=== PATIENT | female | born 1980 | race Caucasian/White ===

== ENCOUNTER 2019-07-16 21:27 | Emergency (ER) | payer BC, OTHER, SELFPAY ==
--- NOTE | ~2019-07-16 | XR_ITS ---
EXAMINATION: XR ankle RT min 3V INDICATION: Right heel pain TECHNIQUE: Four views of the right ankle are obtained. COMPARISON: 01/23/2016 FINDINGS: No fracture is identified. There is a plantar calcaneal enthesophyte. Bone alignment is nor mal. The soft tissues are unremarkable. IMPRESSION: 1. No acute osseous abnormality identified. If there is high clinical suspicion for fracture, conside r CT. Reviewed, dictated and finalized at location A. IMPRESSION: 1. No acute osseous abnormality identified. If there is high clinical suspicion for fracture, consider CT.
[2019-07-16 21:28] VITALS: BP 142/96; PULSE 95; RESP 16; TEMP 36.5; O2SAT 98
--- NOTE | 2019-07-16 21:33 | ED.EXTPRO ---
HPI - Extremity Problem General Chief complaint: Extremity Problem,Nontraumatic Stated complaint: heel pain Time Seen by Provider: 07/16/19 21:31 Source: patient Mode of arrival: ambulatory Limitations: no limitations History of Present Illness HPI Narrative: A 39 y/o female presents to the ED with c/o right heel pain. Pt states that the right heel pain started yesterday when she woke up and has been constant since. She notes that she works for [employer] and is constantly walking for her job. Pt denies any trauma or injury that could cause the pain. She denies numbness and tingling. Pt has no other complaints at this time. MD Complaint: extremity pain (Right heel) Onset (ago): day(s) (1) Pain Consistency: constant Location: right and other (Heel) Associated symptoms: denies other symptoms Related Data Allergies Allergy/AdvReac Type Severity Reaction Status Date / Time Penicillins AdvReac Unknown Verified 07/16/19 21:36 Review of Systems Review of Systems: All systems reviewed & are unremarkable except as noted in HPI and below Musculoskeletal: Musculoskeletal: Reports arthralgias (Right heel) Neurologic: Denies numbness and Denies tingling PMFSH Past Medical History Medical History Asthma Bronchitis Hx of rotator cuff tear rt Surgical History Surgical History History of classical section x3 Hx of rotator cuff surgery rt Social History Social History Smoking status: Never smoker Gender identity (if verbalized by the patient): Female Exam Narrative: Exam Narrative: GENERAL: Well-appearing, well-nourished, and in no acute distress. HEAD: Normocephalic, atraumatic. EYES: PERRLA and EOMI. ENT: . Mucous membranes moist. NECK: Supple. CHEST: Clear to auscultation. No respiratory distress. HEART: Regular rate and rhythm. No murmur heard. Normal peripheral pulses.. EXTREMITIES: Normal range of motion. No edema. Right ankle no soft tissue swelling, normal range of motion however tenderness on the right Achilles tendon. SKIN: Warm, dry, no rash. NEURO: No focal deficits. Alert and oriented x3. PSYCH: Normal mood and affect. Course Course Emergency Course: Inform patient about her x-ray findings. At this time it appears to be more tendinitis. Advised her to use Ross wrap and take pain medication as prescribed. Vital Signs Vital signs: Vital Signs Temperature 36.5 C 07/16/19 21:28 Pulse Rate 95 07/16/19 21:28 Respiratory Rate 16 07/16/19 21:28 Blood Pressure 142/96 H 07/16/19 21:28 Pulse Oximetry 98 07/16/19 21:28 Temperature 36.5 C 07/16/19 21:28 Pulse Rate 95 07/16/19 21:28 Respiratory Rate 16 07/16/19 21:28 Blood Pressure 142/96 H 07/16/19 21:28 Pulse Oximetry 98 07/16/19 21:28 Discharge Plan Discharge Clinical Impression: Achilles tendinitis Qualifiers: Laterality: right Qualified Code(s): M76.61 - Achilles tendinitis, right leg Patient Disposition: Home, Self-Care Condition: Stable Instructions: Achilles Tendinitis (ED) Additional Instructions: Use Ross wrap, follow-up with your primary doctor or orthopedic doctor if symptoms do not improve in a week time. Prescriptions: New naproxen 500 mg tablet 500 mg PO BID PRN (Reason: pain) Qty: 20 RF: 0 No Action azithromycin 500 mg tablet See Rx Instructions .ROUTE .COMPLEX Qty: 6 RF: 0 albuterol sulfate 90 mcg/actuation aero powdr breath act w/sensor 1 inhalation INHALATION Q4-6H PRN (Reason: shortness of breath or wheezing) 10 Days Qty: 1 RF: 0 azithromycin 500 mg tablet See Rx Instructions .ROUTE .COMPLEX Qty: 6 RF: 0 acetaminophen [Tylenol] 325 mg tablet 325 mg PO Q6H PRN (Reason: pain) Qty: 20 RF: 0 ibuprofen 400 mg tablet 400 mg PO TID PRN (Reason: fever or pain) 10 Days Qty: 30 RF: 0 fluticasone propiona
== END 2019-07-16 22:22 | disposition home or self-care (01) ==
PROVIDERS: Emergency Provider Family Medicine
DX: M76.61 Achilles tendinitis, right leg (principal); J45.909 Unspecified asthma, uncomplicated
CPT/HCPCS: 73610; 99283

== ENCOUNTER 2019-07-24 00:13 | Emergency (ER) | payer OTHER, SELFPAY ==
--- NOTE | ~2019-07-24 | XR_ITS ---
EXAMINATION: XR chest 2V DATE: 07/24/2019 01:06 INDICATION: Chest pain. Hypertension. TECHNIQUE: PA and lateral views of the chest were obtained. COMPARISON: Chest radiograph dated 05/06/2019 FINDINGS: The lungs remain clear with no focal airspace opacities, pulmonary edema, pleural effusion or pneumot horax. The cardiomediastinal silhouette is normal. Mild thoracic spondylosis. IMPRESSION: 1. No acute cardiopulmonary disease. Reviewed, dictated and finalized at location A.
[2019-07-24 00:16] VITALS: BP 153/99; PULSE 95; RESP 18; TEMP 36.2; O2SAT 98
--- NOTE | 2019-07-24 00:40 | ECG_ITS ---
Measurements Intervals [place] Rate: 76 P: 16 OR: 169 QRS: -22 QRSD: 88 T: -3 QT: 355 QTc: 400 Interpretive Statements SINUS RHYTHM VOLTAGE CRITERIA FOR LVH BORDERLINE R WAVE PROGRESSION, ANTERIOR LEADS BORDERLINE T WAVE ABNORMALITY- INFERIOR LEADS BASELINE ARTIFACT- I, III, AVR, AVL, AVF BORDERLINE ECG Electronically Signed On 07-24-2019 7:12:49 CDT by Polo Buitrago D.O.
--- NOTE | 2019-07-24 00:43 | ED.GENADULT ---
HPI - General Adult General Chief complaint: Recheck/Abnormal Lab/Rx Stated complaint: high bp Time Seen by Provider: 07/24/19 00:19 History of Present Illness HPI narrative: 39-year-old female presents emergency department with complaint of shortness of breath, lightheadedness and elevated blood pressure. Patient states she was at work and started to feel short of breath and lightheaded and went to the office to have someone take her blood pressure which was 166/112. She states she was having some of the symptoms yesterday but they seem to improve. She reports chest pain that has been intermittent and faint . She denies cough, fever, chills, nausea or vomiting. She denies any pain in the calf area, headache, changes in vision. Related Data Allergies Allergy/AdvReac Type Severity Reaction Status Date / Time Penicillins AdvReac Unknown Verified 07/24/19 00:37 Review of Systems Review of Systems: Narrative: CONSTITUTIONAL: Denies fever, chills, or sweats. EYES: Denies visual changes, redness, or discharge. ENT: Denies rhinorrhea, congestion, sore throat, or otalgia. CARDIOVASCULAR: Reports darell chest pain that is intermittent. Denies palpitations, or edema. RESPIRATORY: Denies cough. Reports feeling short of breath today. GASTROINTESTINAL: Denies abdominal pain, nausea, vomiting, or diarrhea. GENITOURINARY: Denies dysuria or hematuria. SKIN: Denies rash or itching. MUSCULOSKELETAL: Denies back pain, joint pain, or myalgia. NEUROLOGIC: Denies headache, numbness, or weakness. Reports lightheadedness. PSYCHIATRIC: Denies anxiety or depression. [facility] Past Medical History Medical History Asthma Bronchitis Hx of rotator cuff tear rt Surgical History Surgical History History of classical section x3 Hx of rotator cuff surgery rt Family History Family History (Updated 07/24/19 @ 00:50 by MANGO Lazar) Grandparent FH: lung cancer Mother Thyroid condition Social History Social History (Updated 07/24/19 @ 00:50 by MANGO Lazar) Smoking status: Former smoker Tobacco type: cigarettes Alcohol intake: current Alcohol use details: Occasional Gender identity (if verbalized by the patient): Female Exam Narrative: Exam Narrative: GENERAL: Well-appearing, well-nourished, and in no acute distress. HEAD: Normocephalic, atraumatic. EYES: Sclera anicteric.PERRL ENT: Nares clear, no rhinorrhea or epistaxis. Mucous membranes moist. NECK: Supple. No thyromegaly. CHEST: Clear to auscultation. No respiratory distress. Pain is not reproducible. HEART: Regular rate and rhythm. No murmur heard. Normal peripheral pulses. ABDOMEN: Soft, nontender, nondistended, normal active bowel sounds. EXTREMITIES: Normal range of motion. No edema. SKIN: Warm, dry, no rash. NEURO: No focal deficits. Alert and oriented x3. PSYCH: Normal mood and affect. Course Course Emergency Course: 39 y/o female with a hx of bronchitis presented after she was not feeling well at work and had a blood pressure reading of 166/112. She states she felt lightheaded and SOB with a discomfort across her chest when she took a breath. Pain is not reproducible and symptoms were resolved on initial exam. She states she had similar symptoms yesterday, but did not check her blood pressure. Reading was obtained at her place of employment by non-medical personnel. B/p has been elevated in the ED at 153/99. She is not tachycardic and EKG is without change compared to prior in May 2019. Cardiac workup and CXR is negative. She does not have a PCP at this time and have referred to provider relations advocate PCP. Heart risk score is 1 and PERC is 0. Will D/C home to follow up with PCP. Vital Signs Vital signs: Vital Signs Temperature 36.2 C L 07/24/19 00:16 Pulse Rate 95 07/24/19 00:16 Respiratory Rate 18 07/24/19 00:16 Blood P
[2019-07-24 01:02] LABS: Basophils Percent Auto 0.5 % (0.2-1.2); Eosinophils Absolute Auto 0.5 K/mm3 (0-0.3); Eosinophils Percent Auto 5.2 % (0-4.4); Hematocrit 37.6 % (37.0-47.0); Hemoglobin 12.3 g/dL (12.0-15.0); Immature Granulocyte Absolute 0.01 K/mm3 (0.00-0.031); Immature Granulocyte Percent A 0.1 % (0-0.5); Lymphocytes Absolute Auto 3.16 K/mm3 (0.9-3.2); Lymphocytes Percent Auto 36.8 % (18.3-44.2); Mean Corpuscular HGB Conc 32.7 g/dl (32-36); Mean Corpuscular Hemoglobin 29.4 pg (26-34); Mean Corpuscular Volume 89.7 fl (80-100); Mean Platelet Volume 9.5 fl (7.4-10.4); Monocytes Absolute Auto 0.5 K/mm3 (0.1-0.6); Monocytes Percent Auto 5.8 % (2.6-8.5); Neutrophils Absolute Auto 4.4 K/mm3 (1.3-6.7); Neutrophils Percent Auto 51.6 % (45.5-73.1); Platelet Count Result 286 k/mm3 (150-375); Red Blood Count 4.19 M/mm3 (4.2-5.4); Red Cell Distribution Width 14.1 % (11.5-14.5); White Blood Count 8.6 K/mm3 (4.5-10.0)
[2019-07-24 01:05] VITALS: RESP 19
[2019-07-24 01:08] VITALS: BP 139/88; PULSE 78; RESP 19
[2019-07-24 01:11] LABS: INR 0.9; Prothrombin Time 12.1 Seconds (11.1-14.7)
[2019-07-24 01:12] LABS: Alanine Aminotransferase 24 U/L (4-35); Albumin Level 3.8 g/dL (3.5-5.1); Alkaline Phosphatase 131 U/L (38-126); Aspartate Amino Transferase 33 U/L (14-36); Bilirubin,Total 0.4 mg/dL (0.2-1.3); Blood Urea Nitrogen 17 mg/dL (7-17); Calcium 8.6 mg/dL (8.4-10.2); Carbon Dioxide 26 mmol/L (22-30); Chloride 103 mmol/L (98-107); Estimated CRCL calculation 78 ml/min; Estimated Glomerular Filt Rate > 60; Glucose 83 mg/dL (65-105); Partial Thromboplastin Time 26.4 SECONDS (22.3-36.8); Potassium 3.6 mmol/L (3.4-5.0); Sodium 136 mmol/L (137-145)
[2019-07-24] MEDS: ASPIRIN 81 MG CHEWABLE TABLET 324 MG PO (01:12)
[2019-07-24 01:16] VITALS: BP 156/99; PULSE 76; RESP 14
[2019-07-24 01:24] LABS: Troponin I < 0.012 ng/mL (0.000-0.034)
[2019-07-24 01:32] VITALS: BP 152/96; PULSE 82; RESP 17
[2019-07-24 01:46] VITALS: BP 141/94; PULSE 73; RESP 22
== END 2019-07-24 02:03 | disposition home or self-care (01) ==
PROVIDERS: Emergency Provider Nurse Practitioner
DX: R03.0 Elevated blood-pressure reading, without diagnosis of hypertension (principal); Z87.440 Personal history of urinary (tract) infections
CPT/HCPCS: 36415; 71046; 80053; 81025; 84484; 85025; 85610; 85730; 93005; 99284; A9270

== ENCOUNTER 2019-11-19 18:42 | Emergency (ER) | payer OTHER, SELFPAY ==
[2019-11-19 19:16] VITALS: BP 162/106; PULSE 90; RESP 19; TEMP 36.7; O2SAT 100
[2019-11-19 21:16] VITALS: TEMP 36.8
--- NOTE | 2019-11-19 21:17 | ED.URI ---
HPI - URI/Sore Throat General Chief Complaint: Upper Respiratory Infection Stated Complaint: FEVER, CHILLS Time Seen by Provider: 11/19/19 21:15 History of Present Illness HPI Narrative: She reports a headache and sinus pressure for the past few days. Associated with body ahces, nasal drainage and cough. She tried ibuprofen with significant relief. She works at [employer] and said they have had COVID-19 cases there. No fever, wheezing, SOB. Related Data Allergies Allergy/AdvReac Type Severity Reaction Status Date / Time Penicillins AdvReac Unknown Verified 11/19/19 21:20 Review of Systems Review of Systems: All systems reviewed & are unremarkable except as noted in HPI and below Constitutional: Constitutional: Denies fever(s) ENT: Reports nasal congestion and Denies sore throat Cardiovascular: Cardiovascular: Denies chest pain Respiratory: Respiratory: Reports cough and Denies dyspnea Gastrointestinal: Gastrointestinal: Denies nausea and Denies vomiting Genitourinary: Genitourinary: Denies dysuria Musculoskeletal: Musculoskeletal: Reports myalgias Neurologic: Reports headache(s) [facility] Past Medical History Medical History Asthma Bronchitis Hx of rotator cuff tear rt Surgical History Surgical History History of classical section x3 Hx of rotator cuff surgery rt Family History Family History Grandparent FH: lung cancer Mother Thyroid condition Social History Social History Smoking status: Former smoker Tobacco type: cigarettes Alcohol intake: current Gender identity (if verbalized by the patient): Female Exam HENMT: Ears: TM's normal bilaterally Face and sinus: sinus tenderness maxillary Eyes: Conjunctivae: conjunctivae normal Pupils: Equal, round and reactive pupils present EOM: EOMs intact bilaterally Neck: Neck: normal visual inspection and no lymphadenopathy Resp: Effort & Inspection: normal respiratory effort Auscultation: clear to auscultation bilaterally Cardio: Rate: regular rate Rhythm: regular rhythm GI: GI Palp: Yes Soft to palpation and No Tenderness to palpation present (GI) Skin: General skin exam: normal color Neuro: General: patient oriented x3, moves all extremities and CN's II-XI intact bilaterally Speech: normal speech Course Vital Signs Vital signs: Vital Signs Temperature 36.7 C 11/19/19 19:16 Pulse Rate 90 11/19/19 19:16 Respiratory Rate 19 11/19/19 19:16 Blood Pressure 162/106 H 11/19/19 19:16 Pulse Oximetry 100 11/19/19 19:16 Temperature 36.8 C 11/19/19 21:16 Pulse Rate 90 11/19/19 21:19 Respiratory Rate 18 11/19/19 22:40 Blood Pressure 150/104 H 11/19/19 21:19 Pulse Oximetry 98 11/19/19 21:19 MDM - URI/Sore Throat MDM Narrative Medical decision making narrative: Exam consistent with sinusitis. No indication for antibiotics at this time. Will test for COVID due to possible exposure. Medical Records Attestation: I reviewed the patient's medical records. Discharge Plan Discharge Clinical Impression: Sinusitis Qualifiers: Sinusitis location: unspecified location Chronicity: acute Recurrence: not specified as recurrent Qualified Code(s): J01.90 - Acute sinusitis, unspecified Patient Disposition: Home, Self-Care Condition: Stable Instructions: Sinusitis (ED) Prescriptions: New naproxen 500 mg tablet 500 mg PO BID Qty: 30 RF: 0 loratadine-pseudoephedrine [Claritin-D 24 Hour] 10-240 mg tablet extended release 24 hr 1 tablet PO DAILY Qty: 20 RF: 0 No Action albuterol sulfate 90 mcg/actuation aero powdr breath act w/sensor 1 inh INHALATION Q4-6H PRN (Reason: shortness of breath or wheezing) Qty: 1 RF: 0 Follow-up/Referrals: PHYSICIAN,ON C
[2019-11-19 21:19] VITALS: BP 150/104; PULSE 90; RESP 18; O2SAT 98
[2019-11-19] MEDS: ACETAMINOPHEN 500 MG TABLET 1000 MG PO (22:00)
[2019-11-19] MEDS: diphenhydrAMINE HCl CAP 25 MG CAPSULE PO (22:00)
[2019-11-19] MEDS: KETOROLAC (*BKC) 60 MG/2 ML VIAL IM (22:02)
[2019-11-19 22:40] VITALS: RESP 18
== END 2019-11-19 22:40 | disposition home or self-care (01) ==
PROVIDERS: Emergency Provider Emergency Medicine
DX: J01.90 Acute sinusitis, unspecified (principal); J45.909 Unspecified asthma, uncomplicated; Z87.891 Personal history of nicotine dependence; Z20.828 Contact with and (suspected) exposure to other viral communicable diseases
CPT/HCPCS: 96372; 99283; A9270; J1885

== ENCOUNTER 2022-04-09 14:38 | Emergency (ER) | payer OTHER, SELFPAY ==
[2022-04-09] VITALS (13 sets, daily range): BP systolic 133–162; BP diastolic 75–98; PULSE 77–88; RESP 16–20; TEMP 36.7–36.8; O2SAT 98–100
--- NOTE | ~2022-04-09 | XR_ITS ---
EXAMINATION: XR chest 2V Exam Date/Time: 04/09/2022 16:25 RELOCATION COORDINATOR HISTORY: shortness of breath X 1 WK, HX ASTHMA, LT SIDED CHEST PAIN Comparison: 07/24/2019. RESULT: Lines, tubes, and devices: None. Lungs and pleura: Clear. Cardiomediastinal silhouette: Stable. Other: No acute osseous or upper abdominal finding. IMPRESSION: No acute cardiopulmonary process. Reviewed, dictated and finalized at location K. CATION COORDINATOR
--- NOTE | ~2022-04-09 | CT_ITS ---
EXAMINATION: CTA chest PE protocol DATE: 04/09/2022 18:41 INDICATION: shortness of breath, elevated d dimer TECHNIQUE: Computed tomography angiography (CTA) of the chest was performed with 200 mL Omnipaque-350 intravenous contrast timed to evaluate the pulmonary arteries. Coronal maximum intensity projection 3D-reconstructions were created by the technologist. The dose-length product (DLP) was 1003.46 mGy-cm . Automated exposure control and iterative reconstruction technique were employed. COMPARISON: None. FINDINGS: Lung parenchyma and airways: Clear. Intrapulmonary lymph node ini the peripheral right lower lobe, im age 61 series 4. Pleura: Unremarkable. Thoracic inlet, axillae and chest wall: Unremarkable. Thoracic aorta: Normal. Mediastinum: Normal. Heart and pericardium: Normal. Coronary artery calcifications: Absent. Upper abdomen: No significant finding. Bones: No acute osseous finding. Pulmonary arteries: Study quality: Non-diagnostic, due to inadequate overall contrast enhancement, la te phase, beam hardening, motion, and quantum mottle, even after a repeat injection attempt. No pulmo nary emboli detected. IMPRESSION: This examination is nondiagnostic with respect to the diagnosis of pulmonary embolus, even after a re peat imaging attempt. Borderline ascending thoracic aortic aneurysm measuring 4.8 cm, recommend follo w-up CT of the chest with contrast in one year. Reviewed, dictated and finalized at location K. NER TOUCH UP WORKER IMPRESSION: This examination is nondiagnostic with respect to the diagnosis of pulmonary em bolus, even after a repeat imaging attempt. Borderline ascending thoracic aorti c aneurysm measuring 4.8 cm, recommend follow-up CT of the chest with contrast in one year.
--- NOTE | 2022-04-09 15:31 | ECG_ITS ---
Measurements Intervals [place] Rate: 82 P: 35 LA: 179 QRS: -11 QRSD: 98 T: 12 QT: 341 QTc: 400 Interpretive Statements SINUS RHYTHM MODERATE VOLTAGE CRITERIA FOR LVH, CONSIDER NORMAL VARIANT [MEETS CRITERIA IN ONE OF: R(aVL), S(V1), R(V5), R(V5/V6)+S(V1)] POOR R-WAVE PROGRESSION COMPARED TO ECG 07/24/2019 00:43:06 NO SIGNIFICANT CHANGES Electronically Signed On 04-10-2022 8:29:46 MCAT TUTOR by Killian Bobo M.D.
[2022-04-09 16:25] LABS: Basophils Percent Auto 0.4 % (0.2-1.2); Eosinophils Absolute Auto 0.4 K/mm3 (0-0.3); Hematocrit 38.9 % (37.0-47.0); Hemoglobin 12.7 g/dL (12.0-15.0); Immature Granulocyte Absolute 0.02 K/mm3 (0.00-0.031); Immature Granulocyte Percent A 0.2 % (0-0.5); Lymphocytes Absolute Auto 2.37 K/mm3 (0.9-3.2); Lymphocytes Percent Auto 24.1 % (18.3-44.2); Mean Corpuscular HGB Conc 32.6 g/dl (32-36); Mean Corpuscular Hemoglobin 28.7 pg (26-34); Mean Corpuscular Volume 87.8 fl (80-100); Mean Platelet Volume 9.5 fl (7.4-10.4); Monocytes Absolute Auto 0.7 K/mm3 (0.1-0.6); Monocytes Percent Auto 7.1 % (2.6-8.5); Neutrophils Absolute Auto 6.3 K/mm3 (1.3-6.7); Neutrophils Percent Auto 64.2 % (45.5-73.1); Platelet Count Result 323 k/mm3 (150-375); Red Blood Count 4.43 M/mm3 (4.2-5.4); Red Cell Distribution Width 13.6 % (11.5-14.5); White Blood Count 9.8 K/mm3 (4.5-10.0)
[2022-04-09 16:43] LABS: Alanine Aminotransferase 22 U/L (6-35); Albumin Level 4.2 g/dL (3.5-5.1); Alkaline Phosphatase 106 U/L (38-126); Anion Gap 5 mmol/L (8-16); Aspartate Amino Transferase 29 U/L (14-36); Bilirubin,Total 0.5 mg/dL (0.2-1.3); Blood Urea Nitrogen 18 mg/dL (7-17); Calcium 8.7 mg/dL (8.4-10.2); Carbon Dioxide 29 mmol/L (22-30); Chloride 107 mmol/L (98-107); Estimated CRCL calculation 80 ml/min; Estimated Glomerular Filt Rate > 60; Glucose 90 mg/dL (65-110); Potassium 3.8 mmol/L (3.4-5.0); Sodium 141 mmol/L (137-145)
[2022-04-09 17:22] LABS: Troponin I < 0.012 ng/mL (0.000-0.034)
[2022-04-09 17:30] LABS: Influenza A QL RT-PCR Negative (Negative); Influenza B QL RT-PCR Negative (Negative); RSV RNA, RT-PCR Negative (Negative); SARS-CoV-2 RNA PCR Negative
--- NOTE | 2022-04-09 17:32 | ED.SOB ---
HPI - SOB/Dyspnea General Chief Complaint: Shortness of Breath/Dyspnea <Richard Marin APRN - Last Filed: 04/09/22 17:37> Stated Complaint: dizziness, headache <Richard Marin APRN - Last Filed: 04/09/22 17:37> Time Seen by Provider: 04/09/22 16:35 <Richard Marin CUSTOMS GUARD - Last Filed: 04/09/22 17:37> History of Present Illness HPI Narrative: 42-year-old female history of asthma presents to the emergency room for evaluation of shortness of breath that has been present for 1 week. States today while at work she began feeling lightheadedness and dizziness. Said that she reportedly checked her blood pressure and was found to be 138/100. Reportedly took her rescue inhaler once began experiencing short duration of palpitations. States has not taken her rescue inhaler in several months. Denies any chest pain or difficulty breathing. Denies difficulty taking a deep satisfying breath. No history of blood clots. No history of recent surgeries. Does remark that she had some mild sinus congestion and a mild cough couple weeks ago but that is since resolved. <Richard Marin APRN - Last Filed: 04/09/22 17:37> Related Data Allergies/Adverse Reactions: Allergies Allergy/AdvReac Type Severity Reaction Status Date / Time Penicillins AdvReac Unknown Verified 11/19/19 21:20 <Richard Marin APRN - Last Filed: 04/09/22 17:37> Review of Systems Review of Systems: CONSTITUTIONAL: Denies fever, chills, or sweats. EYES: Denies visual changes, redness, or discharge. ENT: Denies rhinorrhea, congestion, sore throat, or otalgia. CARDIOVASCULAR: Denies chest pain, palpitations, or edema. RESPIRATORY: Reports dyspnea GASTROINTESTINAL: Denies abdominal pain, nausea, vomiting, or diarrhea. GENITOURINARY: Denies dysuria or hematuria. SKIN: Denies rash or itching. MUSCULOSKELETAL: Denies back pain, joint pain, or myalgia. NEUROLOGIC: Denies headache, numbness, dizziness, or weakness. PSYCHIATRIC: Denies anxiety or depression. <Richard Marin APRN - Last Filed: 04/09/22 17:37> [facility] Past Medical History Medical History: Medical History (Updated 04/09/22 @ 19:06 by Jessie De La Cruz PA-C) Asthma Bronchitis Hx of rotator cuff tear rt <Richard Marin APRN - Last Filed: 04/09/22 17:37> Surgical History Surgical History: Surgical History History of classical section x3 Hx of rotator cuff surgery rt <Richard Marin APRN - Last Filed: 04/09/22 17:37> Family History Family History: Family History Grandparent FH: lung cancer Mother Thyroid condition <Richard Marin APRN - Last Filed: 04/09/22 17:37> Social History Social History: Social History Smoking status: Former smoker Tobacco type: cigarettes Alcohol intake: current Alcohol use details: Occasional Gender identity (if verbalized by the patient): Female <Richard Marin APRN - Last Filed: 04/09/22 17:37> Exam Narrative: GENERAL: Well-appearing, well-nourished, no physical limitations, and in no acute distress. HEAD: Normocephalic, atraumatic. EYES: Conjunctivae normal, PERRLA and EOMI. NECK: Supple. No adenopathy or masses. CHEST: Clear to auscultation. No respiratory distress. No wheezes rales or rhonchi. HEART: Regular rate and rhythm. No murmur heard. Normal peripheral pulses. EXTREMITIES: Normal range of motion. No edema. No clubbing or cyanosis SKIN: Warm, dry, no rash. No noted wounds NEURO: No focal deficits. Alert and oriented x3. MAEW. CN's II-XI intact bilaterally, normal gait PSYCH: Cooperative. Normal mood and affect. <Richard Marin APRN - Last Filed: 04/09/22 17:37> Course Course Emergency Course: Taken over at shift change pending CTA. Unfortunately CTA is nondiagnostic for PE. She is low ris
[2022-04-09 17:43] LABS: D Dimer 0.88 ug/mL (<0.48)
[2022-04-09] MEDS: SODIUM CHLORIDE 0.9% IV 1,000 ML 999 ML IV CONT (17:57)
== END 2022-04-09 19:46 | disposition home or self-care (01) ==
PROVIDERS: Emergency Medicine; Emergency Provider Nurse Practitioner Family
DX: R06.02 Shortness of breath (principal); Z87.891 Personal history of nicotine dependence; Z20.822 Contact with and (suspected) exposure to COVID-19
CPT/HCPCS: 36415; 71046; 71275; 80053; 81025; 84484; 85025; 85380; 87637; 93005; 96360; 99284; J7030; Q9967

== ENCOUNTER 2022-11-27 12:18 | Emergency (ER) | payer OTHER, SELFPAY ==
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
[2022-11-27 12:37] VITALS: BP 153/92; PULSE 73; RESP 16; TEMP 36.3; O2SAT 98
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
[2022-11-27] MEDS: CYCLOBENZAPRINE HCL 10 MG TABLET PO (15:38)
[2022-11-27] MEDS: IBUPROFEN 600 MG TABLET PO (15:38)
[2022-11-27 16:36] VITALS: PULSE 82; RESP 18
== END 2022-11-27 16:38 | disposition home or self-care (01) ==
PROVIDERS: Emergency Provider Physician Assistant
DX: S16.1XXA Strain of muscle, fascia and tendon at neck level, initial encounter (principal); S29.019A Strain of muscle and tendon of unspecified wall of thorax, initial encounter; S90.01XA Contusion of right ankle, initial encounter; V44.5XXA Car driver injured in collision with heavy transport vehicle or bus in traffic accident, initial encounter
CPT/HCPCS: 70450; 72125; 72128; 73610; 99284; A9270

== ENCOUNTER 2024-03-11 17:24 | Emergency (ER) | payer SELFPAY ==
--- NOTE | ~2024-03-11 | CT_ITS ---
CLINICAL INDICATION: Left-sided flank pain COMPARISON: None. TECHNIQUE: Multiple contiguous axial images of the abdomen and pelvis were performed without the admi nistration of intravenous contrast The dose-length product (DLP) was 974.26 mGy-cm. Automated exposure control and iterative reconstruction technique were employed. FINDINGS/OBSERVATIONS: Visualized lower thorax: The bilateral lung bases are clear. The heart is of normal size, without pericardial effusion. Small hiatal hernia is present. Liver: The liver demonstrates homogeneous attenuation and is not enlarged measuring 16 cm in longitudinal di mension. Gallbladder and biliary system: The gallbladder is only minimally distended, and otherwise unremarkable. Pancreas: Limited evaluation of the pancreas secondary to the lack of intravenous contrast. Spleen: The spleen demonstrates homogeneous attenuation and is not enlarged measuring 10 cm in longitudinal d imension. Kidneys: Mild left-sided hydronephrosis, without hydroureteronephrosis or obstructing stone visualized. The right nothing dictated kidney, collecting system, and ureter are unremarkable. Adrenal glands: Unremarkable. Gastrointestinal tract: Colonic diverticulosis without surrounding inflammatory change. Fecal stasis within the colon. Appendix: The air-filled appendix is of normal caliber (axial series, images 109-116) Vasculature: Unremarkable. Lymph nodes: No pathologically enlarged or morphologically suspicious lymph nodes within the retroperitoneum or at the root of the mesentery. Pelvic structures: The bladder is decompressed, and otherwise unremarkable. The uterus is anteverted and anteflexed, and otherwise unremarkable. Body wall and musculoskeletal: Small fat-containing umbilical hernia. No significant degenerative disease within the lower thoracic or lumbosacral spine. IMPRESSION: Mild left-sided hydronephrosis, possibly secondary to a recently passed calculus. No left-sided hydro ureter. No obstructing calculus within the left ureter. No calculus within the bladder. Examination is otherwise unremarkable, as detailed above Reviewed, dictated and finalized at location A. [facility] IMPRESSION: Mild left-sided hydronephrosis, possibly secondary to a recently passed calculu s. No left-sided hydroureter. No obstructing calculus within the left ureter. N o calculus within the bladder. Examination is otherwise unremarkable, as detailed above
[2024-03-11 17:29] VITALS: BP 154/99; PULSE 90; RESP 19; TEMP 36.8; O2SAT 100
--- NOTE | 2024-03-11 17:40 | ED.ABDPAIN ---
HPI - Abdominal Pain General Chief Complaint: Abdominal Pain <MARY Ivey Last Filed: 03/11/24 18:51> Stated Complaint: left flank pain <MARY Ivey Last Filed: 03/11/24 18:51> Time Seen by Provider: 03/11/24 17:32 <MARY Ivey Last Filed: 03/11/24 18:51> Source: patient <MARY Ivey Last Filed: 03/11/24 18:51> Mode of arrival: ambulatory <MARY Ivey Last Filed: 03/11/24 18:51> Limitations: no limitations <MARY Ivey Last Filed: 03/11/24 18:51> History of Present Illness HPI narrative: Patient is a 43 y/o female who presents to the ED with c/o L flank pain. Patient reports pain began yesterday but became worse today and has been radiating around to her L mid/upper abdomen. Denies hx of similar pain. Denies injury. Took ibuprofen earlier today w/o improvement. Denies N/V, dysuria, hematuria, fevers, hx of kidney stones. <MARY Ivey Last Filed: 03/11/24 18:51> Related Data Allergies/Adverse Reactions: Allergies Allergy/AdvReac Type Severity Reaction Status Date / Time Penicillins AdvReac Unknown Verified 03/11/24 17:52 <Amada Purcell PA-C - Last Filed: 03/11/24 18:51> Review of Systems Review of Systems: All systems reviewed & are unremarkable except as noted in HPI. <MARY Ivey Last Filed: 03/11/24 18:51> All systems reviewed & are unremarkable except as noted in HPI and below <MARY Ivey Last Filed: 03/11/24 18:51> FOR[facility]LY [facility] Past Medical History Medical History: Medical History (Updated 03/12/24 @ 00:00 by Mikhail Dachristopher) Asthma Bronchitis Hx of rotator cuff tear rt <Amada Purcell PA-C - Last Filed: 03/11/24 18:51> Surgical History Surgical History: Surgical History History of classical section x3 Hx of rotator cuff surgery rt <Amada Purcell PA-C - Last Filed: 03/11/24 18:51> Family History Family History: Family History Grandparent FH: lung cancer Mother Thyroid condition <Amada Purcell PA-C - Last Filed: 03/11/24 18:51> Social History Social History: Social History Smoking status: Former smoker Tobacco type: cigarettes Alcohol intake: current Alcohol use details: Occasional Gender identity (if verbalized by the patient): Female <Amada Purcell PA-C - Last Filed: 03/11/24 18:51> Exam Narrative: GENERAL: Well appearing, obese with BMI of 36.7, non-toxic, in no acute distress. HEAD: Normocephalic, atraumatic. RESPIRATORY: Airway patent, respirations nonlabored. Clear to auscultation bilaterally, no rales, rhonchi, wheezing. CARDIOVASCULAR: Regular rate and rhythm ABDOMINAL: Soft, TTP in L mid/upper abdomen, nondistended. Normoactive BS. +CVA tenderness on L MUSCULOSKELETAL: Moves all extremities. No gross deformities. SKIN: Warm, dry, normal color. NEURO: A&O X3. Speech clear PSYCHIATRIC: Appropriate mood and affect. Normal interaction. <Amada Purcell PA-C - Last Filed: 03/11/24 18:51> Course Vital Signs Vital signs: Vital Signs Temperature 98.3 F 03/11/24 17:29 Pulse Rate 90 03/11/24 17:29 Respiratory Rate 19 03/11/24 17:29 Blood Pressure 154/99 H 03/11/24 17:29 Pulse Oximetry 100 03/11/24 17:29 Oxygen Delivery Room Air 03/11/24 17:29 Temperature 98.3 F 03/11/24 17:29 Pulse Rate 86 03/11/24 19:50 Respiratory Rate 13 03/11/24 19:50 Blood Pressure 123/88 03/11/24 19:50 Pulse Oximetry 96 03/11/24 19:50 Oxygen Delivery Room Air 03/11/24 17:29 <Amada Purcell PA-C - Last Filed: 03/11/24 18:51> Vital Signs Temperature 98.3 F 03/11/24 17:29 Pulse Rate 90 03/11/24 17:29 Respiratory Rate 19 03/11/24 17:29 Blood Pressure 154/99 H 03/11/24 17:29 Pulse Oximetry 100 03/11/24 17:29 Oxygen Delivery Room Air 03/11/24 17:29 Temperature 98.3 F 03/11/24 17:29 Pulse Rate 86 03/11/24 19:50 Respiratory Rate 13 03/11/24 19:50 Blood Pressure 123/88 03/11/24 19:50 Pulse Oximetry 96 03/11/24 19:50 Oxygen Delivery Room Air 03/11/24 17:29 <Mony Vega PA-C - Last Filed: 03/12/24 01:54> MDM - Abdominal Pain MDM Narrative Medical decision making narrative: Patient presented to ED with left-sided abdominal and flank pain, onset yesterday worsening today. No history of similar pain. No urinary complaints. Vital signs are stable upon arrival. Laboratory studies w/o leukocytosis, stable H&H. CMP is unremarkable. Stable electrolytes/kidney function, normal LFTs/lipase. UA with some blood, no signs of infection. CT abd/pelvis obtained and pending. Care signed out to Mony Vega PA-C at shift change pending CT results. <Amada Purcell PA-C - Last Filed: 03/11/24 18:51> Patient presented to ED with left-sided abdominal and flank pain, onset yesterday worsening today. No history of similar pain. No urinary complaints. Vital signs are stable upon arrival. Laboratory studies w/o leukocytosis, stable H&H. CMP is unremarkable. Stable electrolytes/kidney function, normal LFTs/lipase. UA with some blood, no signs of infection. CT abd/pelvis obtained and pending. Care signed out to Mony Vega PA-C at shift change pending CT results. Pt signed out to myself pending CT. CT reveals mild left-sided hydronephrosis, possibly secondary to recently passed calculus. There is no left-sided hydroureter. No obstructing calculus within the left ureter. There is no calculus within the bladder. Exam is otherwise unremarkable. Patient was updated on workup. Upon my evaluation she is still experiencing pain in the left flank despite morphine. Toradol provided with improvement. Suspect that her symptoms are secondary from passed ureteral stone, however will treat as if ureteral calculus is present as a small stone may have been missed on imaging. Patient is given a script for Sharon, Zofran and Flomax she is advised to follow-up closely with the urologist. Strict ED return precautions were discussed. She is agreeable with the plan verbalized understanding. Discharged in stable condition. <Mony Vega PA-C - Last Filed: 03/12/24 01:54> Medical Records Attestation: I reviewed the patient's medical records. <Amada Purcell PA-C - Last Filed: 03/11/24 18:51> Lab Data Attestation: I reviewed the patient's lab results. <Amada Purcell PA-C - Last Filed: 03/11/24 18:51> Result diagrams: 03/11/24 17:40 03/11/24 17:40 <Amada Purcell PA-C - Last Filed: 03/11/24 18:51> Labs: Lab Results 03/11/24 03/11/24 Range/Units 17:40 17:50 WBC 8.1 (4.5-10.0) K/mm3 RBC 4.32 (4.2-5.4) M/mm3 Hgb 11.9 L (12.0-15.0) g/dL Hct 36.7 L (37.0-47.0) % MCV 85.0 (80-100) fl MCH 27.5 (26-34) pg MCHC 32.4 (32-36) g/dl RDW 14.9 H (11.5-14.5) % Plt Count 288 (150-375) k/mm3 MPV 9.2 (7.4-10.4) fl Immature Gran % (Auto) 0.2 (0-0.5) % Neut % (Auto) 69.0 (45.5-73.1) % Lymph % (Auto) 18.2 L (18.3-44.2) % [place] % (Auto) 8.5 (2.6-8.5) % Eos % (Auto) 3.7 (0-4.4) % Baso % (Auto) 0.4 (0.2-1.2) % Lymph # (Auto) 1.48 (0.9-3.2) K/mm3 [place] # (Auto) 0.7 H (0.1-0.6) K/mm3 Eos # (Auto) 0.3 (0-0.3) K/mm3 Baso # (Auto) 0.0 (0.0-0.1) K/mm3 Abs Immat Gran (auto) 0.02 (0.00-0.031) K/mm3 Absolute Neuts (auto) 5.6 (1.3-6.7) K/mm3 Absolute Nucleated RBC 0.000 (0.0-0.012) K/mm3 Nucleated RBC % 0.0 (0.0-0.2) % Sodium 137 (137-145) mmol/L Potassium 4.0 (3.4-5.0) mmol/L Chloride 102 (98-107) mmol/L Carbon Dioxide 30 (22-30) mmol/L Anion Gap 5 (4-12) mmol/L BUN 18 H (7-17) mg/dL Creatinine 0.80 (0.7-1.0) mg/dL Estim Creat Clear Calc 85 ml/min Estimated GFR > 60 (59 - ) Glucose 99 (65-110) mg/dL Calcium 8.8 (8.4-10.2) mg/dL Total Bilirubin 0.4 (0.2-1.3) mg/dL AST 23 (14-36) U/L ALT 14 (6-35) U/L Alkaline Phosphatase 95 (38-126) U/L Total Protein 7.0 (6.3-8.2) g/dL Albumin 3.9 (3.5-5.1) g/dL Lipase 100 (23-300) U/L Urine Color Dark yellow (Yellow) Urine Appearance Clear (Clear) Urine pH 5.5 (5.0-9.0) Ur Specific Omega 1.023 (1.001-1.035) Urine Protein Negative (Negative) mg/dL Urine Glucose (UA) Negative (Negative) mg/dL Urine Ketones Negative (Negative) mg/dL Ur Blood (Man) 2+ H (Negative) Urine Nitrate Negative (Negative) Urine Bilirubin Negative (Negative) Urine Urobilinogen 0.2 (<2.0) mg/dL Leukocyte Esterase Rfl Trace H (Negative) HALINA/UL Urine RBC 0-2 (0-2) /hpf Urine WBC 0-5 (0-3) /hpf Ur Squamous Epith Cells Few (Few) /hpf Urine Bacteria Rare /hpf Urine Casts 0-2 Urine Test Negative <Amada Purcell PA-C - Last Filed: 03/11/24 18:51> Lab Results 03/11/24 03/11/24 Range/Units 17:40 17:50 WBC 8.1 (4.5-10.0) K/mm3 RBC 4.32 (4.2-5.4) M/mm3 Hgb 11.9 L (12.0-15.0) g/dL Hct 36.7 L (37.0-47.0) % MCV 85.0 (80-100) fl MCH 27.5 (26-34) pg MCHC 32.4 (32-36) g/dl RDW 14.9 H (11.5-14.5) % Plt Count 288 (150-375) k/mm3 MPV 9.2 (7.4-10.4) fl Immature Gran % (Auto) 0.2 (0-0.5) % Neut % (Auto) 69.0 (45.5-73.1) % Lymph % (Auto) 18.2 L (18.3-44.2) % [place] % (Auto) 8.5 (2.6-8.5) % Eos % (Auto) 3.7 (0-4.4) % Baso % (Auto) 0.4 (0.2-1.2) % Lymph # (Auto) 1.48 (0.9-3.2) K/mm3 [place] # (Auto) 0.7 H (0.1-0.6) K/mm3 Eos # (Auto) 0.3 (0-0.3) K/mm3 Baso # (Auto) 0.0 (0.0-0.1) K/mm3 Abs Immat Gran (auto) 0.02 (0.00-0.031) K/mm3 Absolute Neuts (auto) 5.6 (1.3-6.7) K/mm3 Absolute Nucleated RBC 0.000 (0.0-0.012) K/mm3 Nucleated RBC % 0.0 (0.0-0.2) % Sodium 137 (137-145) mmol/L Potassium 4.0 (3.4-5.0) mmol/L Chloride 102 (98-107) mmol/L Carbon Dioxide 30 (22-30) mmol/L Anion Gap 5 (4-12) mmol/L BUN 18 H (7-17) mg/dL Creatinine 0.80 (0.7-1.0) mg/dL Estim Creat Clear Calc 85 ml/min Estimated GFR > 60 (59 - ) Glucose 99 (65-110) mg/dL Calcium 8.8 (8.4-10.2) mg/dL Total Bilirubin 0.4 (0.2-1.3) mg/dL AST 23 (14-36) U/L ALT 14 (6-35) U/L Alkaline Phosphatase 95 (38-126) U/L Total Protein 7.0 (6.3-8.2) g/dL Albumin 3.9 (3.5-5.1) g/dL Lipase 100 (23-300) U/L Urine Color Dark yellow (Yellow) Urine Appearance Clear (Clear) Urine pH 5.5 (5.0-9.0) Ur Specific Omega 1.023 (1.001-1.035) Urine Protein Negative (Negative) mg/dL Urine Glucose (UA) Negative (Negative) mg/dL Urine Ketones Negative (Negative) mg/dL Ur Blood (Man) 2+ H (Negative) Urine Nitrate Negative (Negative) Urine Bilirubin Negative (Negative) Urine Urobilinogen 0.2 (<2.0) mg/dL Leukocyte Esterase Rfl Trace H (Negative) HALINA/UL Urine RBC 0-2 (0-2) /hpf Urine WBC 0-5 (0-3) /hpf Ur Squamous Epith Cells Few (Few) /hpf Urine Bacteria Rare /hpf Urine Casts 0-2 Urine Test Negative <Mony Vega PA-C - Last Filed: 03/12/24 01:54> Imaging Data Attestation: I personally reviewed and interpreted this imaging study as follows: <MARY Ivey Last Filed: 03/11/24 18:51> Radiologist's impression: ITS Impressions Abdomen/Pelvis CT 03/11/24 18:50 IMPRESSION: Mild left-sided hydronephrosis, possibly secondary to a recently passed calculus. No left-sided hydroureter. No obstructing calculus within the left ureter. No calculus within the bladder. Examination is otherwise unremarkable, as detailed above <MARY Ivey Last Filed: 03/11/24 18:51> ITS Impressions Abdomen/Pelvis CT 03/11/24 18:50 IMPRESSION: Mild left-sided hydronephrosis, possibly secondary to a recently passed calculus. No left-sided hydroureter. No obstructing calculus within the left ureter. No calculus within the bladder. Examination is otherwise unremarkable, as detailed above <Mony Vega PA-C - Last Filed: 03/12/24 01:54> Discharge Plan Discharge Clinical Impression: Left flank pain <MARY Ivey Last Filed: 03/11/24 18:51> Patient Disposition: Home, Self-Care <MARY Ivey Last Filed: 03/11/24 18:51> Condition: Stable <MARY Ivey Last Filed: 03/11/24 18:51> Instructions: Antibiotic Form, Abdominal Pain (ED), Flank Pain (ED) <MARY Ivey Last Filed: 03/11/24 18:51> Additional Instructions: Continue ibuprofen as needed for pain. Take Sharon as needed for breakthrough pain. Take the Zofran as needed for nausea and the Flomax to help dilate your ureter. Please follow closely with the urologist. Return for new or worsening symptoms, your unable to tolerate food or fluids, develop a fever, worsening pain, or other concerning symptoms. <Amada Purcell PA-C - Last Filed: 03/11/24 18:51> Prescriptions: New hydrocodone-acetaminophen 5-325 mg tablet 1 tablet PO Q8H PRN (Reason: pain) Qty: 14 0RF ondansetron 4 mg tablet,disintegrating 4 mg PO Q8H Qty: 14 0RF tamsulosin [Flomax] 0.4 mg capsule 0.4 mg PO HS Qty: 14 0RF No Action albuterol sulfate 90 mcg/actuation aerosol powdr breath activated 1 inh inhalation Q4-6H PRN (Reason: shortness of breath) Qty: 1 0RF prednisone 20 mg tablet 40 mg PO DAILY Qty: 10 0RF cyclobenzaprine 10 mg tablet 10 mg PO TID PRN (Reason: muscle spasm) Qty: 20 0RF ibuprofen 600 mg tablet 600 mg PO Q6H PRN (Reason: pain) Qty: 20 0RF albuterol sulfate 90 mcg/actuation aero powdr breath act w/sensor 1 inh INHALATION Q4-6H PRN (Reason: shortness of breath or wheezing) Qty: 1 0RF naproxen 500 mg tablet 500 mg PO BID Qty: 30 0RF loratadine-pseudoephedrine [Claritin-D 24 Hour] 10-240 mg tablet extended release 24 hr 1 tablet PO DAILY Qty: 20 0RF <Amada Purcell PA-C - Last Filed: 03/11/24 18:51> Follow-up/Referrals: Bryon Segura MD [Physician] - 1 Day PHYSICIAN,[employer] [Primary Care Provider] - Dejuan Jain MD [Physician] - (PRIMARY CARE) <Amada Purcell PA-C - Last Filed: 03/11/24 18:51>
[2024-03-11 17:49] LABS: Basophils Percent Auto 0.4 % (0.2-1.2); Eosinophils Absolute Auto 0.3 K/mm3 (0-0.3); Eosinophils Percent Auto 3.7 % (0-4.4); Hematocrit 36.7 % (37.0-47.0); Hemoglobin 11.9 g/dL (12.0-15.0); Immature Granulocyte Absolute 0.02 K/mm3 (0.00-0.031); Immature Granulocyte Percent A 0.2 % (0-0.5); Lymphocytes Absolute Auto 1.48 K/mm3 (0.9-3.2); Lymphocytes Percent Auto 18.2 % (18.3-44.2); Mean Corpuscular HGB Conc 32.4 g/dl (32-36); Mean Corpuscular Hemoglobin 27.5 pg (26-34); Mean Platelet Volume 9.2 fl (7.4-10.4); Monocytes Absolute Auto 0.7 K/mm3 (0.1-0.6); Monocytes Percent Auto 8.5 % (2.6-8.5); Neutrophils Absolute Auto 5.6 K/mm3 (1.3-6.7); Platelet Count Result 288 k/mm3 (150-375); Red Blood Count 4.32 M/mm3 (4.2-5.4); Red Cell Distribution Width 14.9 % (11.5-14.5); White Blood Count 8.1 K/mm3 (4.5-10.0)
[2024-03-11 17:59] LABS: Add Urine Microscopic? YES; Appearance Urine Clear (Clear); Bacteria Urine Rare /hpf; Bilirubin Urine Negative (Negative); Blood Urine 2+ (Negative); Color Urine Dark Yellow (Yellow); Glucose Urine UA Negative (Negative); Ketones Urine Negative (Negative); Leukocyte Esterase Ur Trace LEU/UL (Negative); Nitrate Urine Negative (Negative); Non Pathogenic Casts 0-2; Protein Urine Negative (Negative); RBC Urine 0-2 /hpf (0-2); Specific Grav Ur 1.023 (1.001-1.035); Squamous Epithelial Cell Urine Few /hpf (Few); Urobilinogen Urine 0.2 mg/dL (<2.0); WBC Urine 0-5 /hpf (0-3); pH Urine 5.5 (5.0-9.0)
[2024-03-11] MEDS: ONDANSETRON INJ 4 MG/2 ML VIAL IV PUSH (18:01)
[2024-03-11] MEDS: MORPHINE SULFATE (*CRX) 4 MG/ML INJ IV PUSH (18:01)
[2024-03-11 18:03] LABS: Alanine Aminotransferase 14 U/L (6-35); Albumin Level 3.9 g/dL (3.5-5.1); Alkaline Phosphatase 95 U/L (38-126); Anion Gap 5 mmol/L (4-12); Aspartate Amino Transferase 23 U/L (14-36); Bilirubin,Total 0.4 mg/dL (0.2-1.3); Blood Urea Nitrogen 18 mg/dL (7-17); Calcium 8.8 mg/dL (8.4-10.2); Carbon Dioxide 30 mmol/L (22-30); Chloride 102 mmol/L (98-107); Estimated CRCL calculation 85 ml/min; Estimated Glomerular Filt Rate > 60; Glucose 99 mg/dL (65-110); Lipase 100 U/L (23-300); Sodium 137 mmol/L (137-145)
[2024-03-11 18:05] LABS: Pregnancy On Board Control Positive; Urine Pregnancy Test Negative
[2024-03-11] MEDS: ACETAMINOPHEN 500 MG TABLET 1000 MG PO (18:45)
[2024-03-11 18:48] VITALS: BP 138/99; PULSE 82; RESP 13; O2SAT 100
[2024-03-11] MEDS: KETOROLAC 30 MG/ML VIAL (*BKC) IV PUSH (19:14)
[2024-03-11 19:50] VITALS: BP 123/88; PULSE 86; RESP 13; O2SAT 96
== END 2024-03-11 19:52 | disposition home or self-care (01) ==
PROVIDERS: Emergency Provider Physician Assistant
DX: R10.9 Unspecified abdominal pain (principal); J45.909 Unspecified asthma, uncomplicated; Z87.891 Personal history of nicotine dependence; N13.30 Unspecified hydronephrosis
CPT/HCPCS: 36415; 74176; 80053; 81001; 81025; 83690; 85025; 96374; 96375; 99284; A9270; J1885; J2270; J2405